=== PATIENT | male | born 1985 | race Caucasian/White ===

== ENCOUNTER 2022-12-30 22:00 | Emergency (ER) | payer OTHER ==
[~2022-12-30] VITALS: Ht 172.7 cm; Wt 75.0 kg
[2022-12-30] MEDS ORDERED: KETOROLAC 60MG 2ML VIAL IM ONE (23:40)
[2022-12-31] MEDS ORDERED: TACR0.1O EX (00:34)
[2022-12-31] MEDS ORDERED: [UNRECOGNIZED DRUG - CODE] EX (00:34)
[2022-12-31] MEDS ORDERED: ACYC1TAB PO (00:34)
[2022-12-31] MEDS ORDERED: MONT-5 PO (00:34)
[2022-12-31] MEDS ORDERED: RIZA5TAB2 PO (00:34)
[2022-12-31] MEDS ORDERED: CETI-24 PO (00:34)
[2022-12-31] MEDS ORDERED: CITA40TA7 PO (00:34)
[2022-12-31] MEDS ORDERED: TACR0.1O4 EX (00:34)
[2022-12-31 00:53] VITALS: BP 115/59; TEMP 98.2; O2SAT 100
== END 2022-12-31 01:47 | disposition home or self-care (01) ==
LOC: M ED 22:00
DX: S30.0XXA Contusion of lower back and pelvis, initial encounter (principal); W19.XXXA Unspecified fall, initial encounter; M54.9 Dorsalgia, unspecified; G43.909 Migraine, unspecified, not intractable, without status migrainosus; F43.10 Post-traumatic stress disorder, unspecified; Z79.899 Other long term (current) drug therapy; Z88.0 Allergy status to penicillin; Z88.8 Allergy status to other drugs, medicaments and biological substances
CPT/HCPCS: 72220; 96372; 99283; J1885